=== PATIENT | male | born 1935 | race African-American/Black ===

== ENCOUNTER 2019-12-29 12:15 | Emergency (ER) | payer MEDICARE ==
[2019-12-29] MEDS ORDERED: HYDROcodone/Acetaminophen 10/325 mg Tablet ONE (13:27)
--- NOTE | 2019-12-29 14:58 | ULT ---
VENOUS DOPPLER ULTRASOUND OF THE LEFT LOWER EXTREMITY: Date: 12/29/2019 HISTORY: Left lower extremity pain and edema. TECHNIQUE: Jackson scale ultrasound with color flow and spectral Doppler imaging of the deep venous systems of the left lower extremity performed. FINDINGS: There is good flow, compression, and augmentation noted in the left common femoral, femoral, deep fem oral, popliteal, posterior tibial, and greater saphenous veins. 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 IMPRESSION: 1. No evidence of deep venous thrombosis in the left lower extremity. 2. Doe's cyst. POS: [facility]
--- NOTE | 2019-12-29 14:59 | RAD ---
LEFT KNEE 4 VIEWS: Date: 12/29/2019 HISTORY: Fall. Left knee pain. 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 No acute fracture or dislocation identified. POS: [facility]
--- NOTE | 2019-12-29 15:01 | RAD ---
LEFT ANKLE 3 VIEWS: Date: 12/29/2019 HISTORY: Fall. Left ankle pain. FINDINGS/IMPRESSION: The ankle mortise is maintained. No fracture or dislocation is seen in the bones of the left ankle. P osterior and plantar calcaneal spurs are present. Incidental note is made of a fracture involving the proximal metaphysis of the fourth metatarsal. POS: [facility]
--- NOTE | 2019-12-29 15:44 | RAD ---
EXAM: CHEST ONE VIEW HISTORY: Injury after fall on Sunday night. Patient reports leg pain. COMPARISON: 05/13/2015 FINDINGS: Cardiac silhouette is magnified by projection. Pulmonary vasculature is within normal limits. There i s mild elevation of the left hemidiaphragm with mild volume loss left lung base. Lungs are otherwise clear. No other interval change. IMPRESSION: No acute cardiopulmonary process.
--- NOTE | 2019-12-29 15:47 | RAD ---
RIGHT FOOT THREE VIEWS: History: Fall Comparison: None FINDINGS: Mild demineralization. Lisfranc interval is maintained. 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 IMPRESSION: 1. No acute displaced fracture. 2. Advanced hindfoot degenerative change. 3. Dorsal soft tissue swelling of the midfoot. POS: [facility]
--- NOTE | 2019-12-29 15:59 | RAD ---
LEFT FOOT 3 VIEWS: Date: 12/29/2019 HISTORY: Fall. COMPARISON: None. FINDINGS: Mild demineralization. There is a fracture of the second, third, and fourth metatarsal bases. Mild wi dening of Lisfranc interval. Small capsular avulsion of the medial aspect of the great toe tarsometatarsal joint. IMPRESSION: 1. Fracture of the Lisfranc interval, including second, third, and fourth metatarsal bases with mild Lisfranc interval widening. There is also capsular injury of the great toe tarsometatarsal joint. Or thopedic foot consultation advised. 2. Abnormal flatfoot deformity and talar neck foreshortening. Dedicated ankle radiograph recommended . POS: [facility]
== END 2019-12-29 17:00 | disposition home or self-care (01) ==
LOC: ERS 12:15
DX: S92.322A Displaced fracture of second metatarsal bone, left foot, initial encounter for closed fracture (principal); S92.332A Displaced fracture of third metatarsal bone, left foot, initial encounter for closed fracture; S92.342A Displaced fracture of fourth metatarsal bone, left foot, initial encounter for closed fracture; I10 Essential (primary) hypertension; Z87.891 Personal history of nicotine dependence; X58.XXXA Exposure to other specified factors, initial encounter
CPT/HCPCS: 71045

== ENCOUNTER 2019-12-29 23:46 | Emergency (ER) | payer MEDICARE ==
[2019-12-30] MEDS ORDERED: HYDROcodone/Acetaminophen 5/325 mg Tablet ONE (02:05)
[2019-12-30 02:32] LABS: Bacteria/HPF None Seen HPF (None Seen); Bilirubin Negative (Negative); Blood, Urine Trace (Negative); Clarity Clear (Clear); Glucose, Urine (Dipstick) Normal (Negative); Ketone, Urine Negative (Negative); Leukocyte Negative Leu/uL (Negative); Nitrite Negative (Negative); Protein, Urine (Dipstick) 70 mg/dL (Neg-Trace); RBC/HPF 0-3 HPF (0-3); Specific Gravity, Urine 1.026 (1.002-1.036); Squamous Epithelial 0-3 HPF (0-3); pH, Urine 5.5 (5.0-9.0)
== END 2019-12-30 07:26 ==
LOC: ERS 23:46
DX: S92.322A Displaced fracture of second metatarsal bone, left foot, initial encounter for closed fracture (principal); S92.332A Displaced fracture of third metatarsal bone, left foot, initial encounter for closed fracture; S92.342A Displaced fracture of fourth metatarsal bone, left foot, initial encounter for closed fracture; M79.671 Pain in right foot; I10 Essential (primary) hypertension; E66.9 Obesity, unspecified; Z87.891 Personal history of nicotine dependence; W18.09XA Striking against other object with subsequent fall, initial encounter
CPT/HCPCS: 71045; 81003; 81015; 99284

== ENCOUNTER 2021-03-11 09:36 | Outpatient (CLI) | payer MEDICARE ==
[2021-03-11 10:56] LABS: #Basophils 0.1 10x3/uL (0.0-0.2); #Eosinphils 0.5 10x3/uL (0.0-0.5); #Monocytes 0.7 10x3/uL (0.0-1.1); %Basophils 0.6 % (0.0-2.0); %Eosinophils 4.8 % (0.0-6.0); %Monocytes 7.2 % (0.0-10.0); Mean Corpuscular HGB CONC 32.2 g/dL (32.0-36.0); Mean Corpuscular Hemoglobin 30.7 pg (27.0-33.0); Mean Corpuscular Volume 95.5 fl (81.2-95.1); Mean Platelet Volume 11.1 fl (7.4-10.4); Platelet Count 214 10x3/uL (150-450); RBC Distribution Width 13.3 % (11.5-14.5); Red Blood Cell (RBC) Count 3.58 10x6/uL (4.32-5.72); White Blood Cell (WBC) Count 9.9 10x3/uL (3.5-10.5)
[2021-03-11 11:15] LABS: ALT (SGPT) 19 U/L (8-55); AST (SGOT) 21 U/L (5-34); Albumin 4.3 g/dL (3.4-4.8); Alkaline Phosphatase 88 U/L (40-110); Anion Gap 15 mmol/L (10-20); BUN (Urea Nitrogen) 26 mg/dL (8.4-25.7); Bilirubin, Total 0.4 mg/dL (0.2-1.2); Calc. Creatinine Clearance 0 mL/min (70-130); Calcium 9.4 mg/dL (7.8-10.44); Carbon Dioxide 25 mmol/L (23-31); Chloride 106 mmol/L (98-107); Globulin 3.1 g/dL (2.4-3.5); Glucose 117 mg/dL (83-110); Potassium 4.2 mmol/L (3.5-5.1); Protein, Total 7.4 g/dL (5.8-8.1); Sodium 142 mmol/L (136-145)
[2021-03-11 19:56] LABS: SARS-CoV-2 PCR by NAA Not Detected (NotDetected)
== END 2021-03-11 09:37 | disposition home or self-care (01) ==
LOC: LABBT 09:36
PROVIDERS: ATTEND Internal Medicine Cardiovascular Disease
DX: Z01.812 Encounter for preprocedural laboratory examination (principal); R94.30 Abnormal result of cardiovascular function study, unspecified; Z20.822 Contact with and (suspected) exposure to COVID-19
CPT/HCPCS: 80053; 85025; U0003; U0005

== ENCOUNTER 2021-03-16 07:11 | Day surgery (SDC) | payer MEDICARE ==
[2021-03-09 13:40] VITALS: BMI 41.3
[~2021-03-16 07:11] MED LIST: Heparin 10,000 UNITS/ 10 ML VIAL ONE
[2021-03-16] MEDS ORDERED: Heparin 10,000 UNITS/ 10 ML VIAL ONE (07:19)
[2021-03-16] MEDS ORDERED: Fentanyl 100 MCG/2 ML VIAL ONE (07:22)
[2021-03-16] MEDS ORDERED: Midazolam HCl 2 mg/2 ml Vial ONE (07:22)
[2021-03-16] MEDS ORDERED: Protamine Sulfate 50 MG/5 ML VIAL ONE (07:22)
[2021-03-16] MEDS ORDERED: Iopamidol 370 76% 100 ML VIAL ONE (11:01)
[2021-03-16] MEDS ORDERED: Iopamidol 370 76% 50 ML VIAL FS ONE (11:01)
== END 2021-03-16 16:57 | disposition home or self-care (01) ==
LOC: CCL 07:11
PROVIDERS: ATTEND Internal Medicine Cardiovascular Disease
PROC: 4A023N7 Measurement of Cardiac Sampling and Pressure, Left Heart, Percutaneous Approach (ICD-10-PCS; principal; 2021-03-16)
PROC: B2111ZZ Fluoroscopy of Multiple Coronary Arteries using Low Osmolar Contrast (ICD-10-PCS; 2021-03-16)
DX: R94.39 Abnormal result of other cardiovascular function study (principal); I25.10 Atherosclerotic heart disease of native coronary artery without angina pectoris; I35.0 Nonrheumatic aortic (valve) stenosis; E78.00 Pure hypercholesterolemia, unspecified; I12.9 Hypertensive chronic kidney disease with stage 1 through stage 4 chronic kidney disease, or unspecified chronic kidney disease; N18.31 Chronic kidney disease, stage 3a; E78.5 Hyperlipidemia, unspecified; G47.33 Obstructive sleep apnea (adult) (pediatric); Z87.891 Personal history of nicotine dependence; Z79.899 Other long term (current) drug therapy
CPT/HCPCS: 85347; 93460; 99152; 99153; J1644; J2250; J2720; J3010; Q9967